=== PATIENT | female | born 1955 ===

== ENCOUNTER 2024-10-13 09:15 | Outpatient (CLI) | payer OTHER, MEDICAID ==
[~2024-10-13] VITALS: Ht 170.2 cm; Wt 194.1 kg
[2024-10-13] MEDS ORDERED: DOBUTamine 1000MCG/ML 250 ML IV ONE (10:33)
[2024-10-13] MEDS ORDERED: DOBUTamine 1000MCG/ML 100 ML IV ONE (13:30)
--- NOTE | 2024-10-30 13:54 | DVHSR ---
APPROVED REPORT Contrast Details Indication: R/O ISCHEMIA Surgery/Intervention NON ISCHEMIC DOBUTAMINE ECHO Conclusion NORMAL EF WITH 10, 20, 30 mcg/Kg/MiN OF DOBUTAMINE NON ISCHEMIA NOTED NORMAL STRESS DOBUTAMINE
== END 2024-10-13 17:00 | disposition home or self-care (01) ==
LOC: Rad HDHVI 09:15
PROVIDERS: ATTEND Internal Medicine Cardiovascular Disease
DX: Z01.810 Encounter for preprocedural cardiovascular examination (principal); I10 Essential (primary) hypertension; E78.00 Pure hypercholesterolemia, unspecified; R06.02 Shortness of breath; R94.31 Abnormal electrocardiogram [ECG] [EKG]; Z82.49 Family history of ischemic heart disease and other diseases of the circulatory system
CPT/HCPCS: 93350; J1250